=== PATIENT | female | born 1950 | race Caucasian/White ===

== ENCOUNTER 2016-07-17 10:08 | Emergency (ER) | payer BC | END 2016-07-17 13:40 | disposition home or self-care (01) | LOC: ER1 10:08 | DX: S22.089A Unspecified fracture of T11-T12 vertebra, initial encounter for closed fracture (principal); S32.2XXA Fracture of coccyx, initial encounter for closed fracture; Z88.2 Allergy status to sulfonamides; Z91.041 Radiographic dye allergy status; W18.09XA Striking against other object with subsequent fall, initial encounter | CPT/HCPCS: 72128; 72131; 99284 ==

== ENCOUNTER → 2016-09-22 | Outpatient (CLI) | payer BC | LOC: RAD 16:07 | DX: Z01.818 Encounter for other preprocedural examination (principal); Z87.891 Personal history of nicotine dependence | CPT/HCPCS: 71020 ==